=== PATIENT | male | born 1970 | race Two or more races ===

== ENCOUNTER 2022-09-26 13:48 | Emergency (ER) | payer MEDICAID ==
[~2022-09-26] VITALS: Ht 165.1 cm; Wt 95.0 kg
[2022-09-26 14:42] LABS: Basophils # (auto) 0 10 ^3/uL (0-0.2); Basophils % (auto) 0.3 % (0.0-2.0); Eosinophils # (auto) 0.1 10 ^3/uL (0-0.8); Eosinophils % (auto) 1.2 % (0.0-7.0); Hematocrit 44.2 % (41.0-53.0); Hemoglobin 15.2 g/dL (13.5-17.5); Lymphocytes % (auto) 23.9 % (10.0-50.0); Mean Corpuscular Hemoglobin 29.4 pg (28.0-32.0); Mean Corpuscular Hgb Conc. 34.3 g/dL (32.0-36.0); Mean Corpuscular Volume 85.6 fL (80.0-100.0); Monocytes % (auto) 12.1 % (0.0-12.0); Neutrophils # (auto) 5.3 10 ^3/uL (1.6-8.6); Neutrophils % (auto) 62.5 % (37.0-80.0); Nucleated Red Blood Cells % 0.2 %; Red Blood Cells 5.17 10^6/uL (4.5-5.90); Red Cell Distribution Width 12.8 % (11.8-14.3); White Blood Cell 8.5 10^3/uL (4.4-10.8)
[2022-09-26 15:01] LABS: INR 0.96 (0.9-1.15)
[2022-09-26 15:31] LABS: Albumin 3.7 g/dL (3.4-5.0); BUN/Creatinine Ratio 16.8; Calcium 8.8 mg/dL (8.5-10.1); Magnesium 2.1 mg/dL (1.6-2.6); Potassium 4.3 mmol/L (3.5-5.1)
[2022-09-26 15:34] LABS: Bilirubin, Total 0.4 mg/dL (0.2-1.0)
[2022-09-26] MEDS ORDERED: NAP500T PO (16:02)
[2022-09-26] MEDS ORDERED: CYCL-837 PO (16:02)
[2022-09-26 16:08] VITALS: BP 141/92
== END 2022-09-26 16:10 | disposition home or self-care (01) ==
LOC: ER 13:48
DX: R07.89 Other chest pain (principal); M54.89 Other dorsalgia
CPT/HCPCS: 36415; 71045; 80053; 83735; 84484; 85025; 85379; 85610; 85730; 93005